=== PATIENT | female | born 1970 | race African-American/Black ===

== ENCOUNTER 2016-12-05 05:30 | Day surgery (SDC) | payer MEDICAID ==
[~2016-12-05 05:30] MED LIST: ADULT LOW DOSE81 M1 PO; ALBUTEROL2.5 MG/3 M INH; ALPRAZOLAM0.25 M3 PO; ASPIRIN81 MG PO; ATENOLOL-CHLOR1 EACH PO; ATENOLOL/CHLORT1 TAB PO; ATORVASTATIN CA20 M1 PO; CLONAZEPAM1 M2 PO; CYCLOBENZAPRINE10 M1 PO; DULERA 200 MCG/13 G1 INH; ESCITALOPRAM OX20 M1 PO; FLOVENT DISKUS50 MCG IH; IBUPROFEN800 M1 PO; IRON325 M3 PO; KLONOPIN1 M1 PO; LEVOFLOXACIN500 M1 PO; MAGNESIUM400 M1 PO; MULTI VITAMIN1 EAC2 PO; NORCO 5/325 TAB1 TAB PO; NORVASC10 M2 PO; NORVASC10 MG PO; PANTOPRAZOLE SO40 M3 PO; PERCOCET 5-3251 EACH PO; PREDNISONE20 M1 PO; PROVENTIL HFA6.7 G1 INH; PROVENTIL HFA6.7 GM IH; SKELAXIN800 M1 PO; TRAZODONE HCL50 M1 PO
[2016-12-05 06:32] LABS: BASO % 0.2 % (0-2); EOS % 1.6 % (0-7); EOSINOPHIL ABSOLUTE COUNT 0.1 tho/cmm (0.0-0.7); HCT-HEMATOCRIT 38.3 % (34.0-49.0); IMMATURE GRANULOCYTES ABSOLUTE 0.02 tho/cmm (0-0.03); IMMATURE GRANULOCYTES PERCENT 0.2 % (0-0.3); LYMPH % 32.4 % (20-45); LYMPH ABSOLUTE COUNT 2.8 tho/cmm (0.8-4.5); MCHC MEAN CORPUSCULAR HGB CONC 33.9 % (32.0-36.0); MCV (MEAN CELL VOLUME) 82.4 fl (82.0-96.0); MEAN PLATELET VOLUME 10.3 cmc (9.4-12.4); MONO % 5.5 % (0-12); MONOCYTE ABSOLUTE COUNT 0.5 tho/cmm (0.0-1.2); NEUTROPHIL ABSOLUTE COUNT 5.1 tho/cmm (1.6-8.0); NEUTROPHIL-AUTOMATED 5.1 tho/cmm (1.6-8.0); NEUTROPHILS % 60.1 % (40-80); PLATELET COUNT 363 tho/cmm (150-450); RED BLOOD COUNT 4.65 mil/cmm (4.00-5.20); RED CELL DISTRIBUTION WIDTH 15.3 % (12.4-16.4); WHITE BLOOD COUNT 8.5 tho/cmm (4.0-10.0)
[2016-12-05 06:43] LABS: ANION GAP 10 mmol/L (0-20); BLOOD UREA NITROGEN 19 mg/dl (6-24); CALCIUM 8.9 mg/dl (8.5-10.5); CARBON DIOXIDE-VENOUS 29 mmol/L (22-32); CHLORIDE 106 mmol/l (96-110); CREATININE 0.89 mg/dl (0.50-1.10); GLUCOSE 99 mg/dL (70-110); POTASSIUM 3.3 mmol/L (3.7-5.1); SODIUM 142 mmol/L (135-145); eGFR VALUE FOR BLACK >90 mL/Min
== END 2016-12-05 09:55 ==
LOC: SRG 05:30 → SHSB 08:40
PROVIDERS: Colon & Rectal Surgery
PROC: 065Y0ZC Destruction of Hemorrhoidal Plexus, Open Approach (ICD-10-PCS; principal; 2016-12-05)
PROC: 0DBQXZZ Excision of Anus, External Approach (ICD-10-PCS; 2016-12-05)
DX: K64.1 Second degree hemorrhoids (principal); K64.4 Residual hemorrhoidal skin tags; I10 Essential (primary) hypertension; E66.01 Morbid (severe) obesity due to excess calories; F41.9 Anxiety disorder, unspecified; F32.9 Major depressive disorder, single episode, unspecified; F43.10 Post-traumatic stress disorder, unspecified; J45.909 Unspecified asthma, uncomplicated; K21.9 Gastro-esophageal reflux disease without esophagitis; F17.210 Nicotine dependence, cigarettes, uncomplicated; E78.00 Pure hypercholesterolemia, unspecified; Z68.42 Body mass index [BMI] 45.0-49.9, adult; Z79.82 Long term (current) use of aspirin; Z79.899 Other long term (current) drug therapy; Z88.5 Allergy status to narcotic agent; Z90.49 Acquired absence of other specified parts of digestive tract; Z90.89 Acquired absence of other organs; Z98.51 Tubal ligation status; Z98.1 Arthrodesis status; Z98.890 Other specified postprocedural states